=== PATIENT | male | born 1995 | race Hispanic/Latino ===

== ENCOUNTER 2017-12-15 20:59 | Emergency (ER) | payer SELFPAY ==
[2017-12-15 23:51] LABS: Absolute Lymphocytes (CBC) 1.8 K/uL (0.7-4.9); Absolute Monocytes 0.9 K/uL (0.1-1.3); Basophils % 0.4 % (0-1.3); Eosinophils % 0.4 % (0-4.4); Hematocrit 45.1 % (39.6-49.0); Lymphocytes % 18.1 % (15.3-44.8); MCH 29.8 pg (27.0-35.0); MPV 10.1 fL (7.6-11.3); Monocytes % 9.5 % (3.3-12.3); RBC Red Blood Cell Count 5.19 M/uL (4.33-5.43)
[2017-12-16 00:02] LABS: Albumin 3.7 g/dL (3.4-5.0); Bilirubin Total 0.2 mg/dL (0.2-1.0); Potassium 3.8 mmol/L (3.5-5.1)
--- NOTE | 2017-12-16 00:26 | ER ---
Nurse's Notes [facility] Name: Regino Kaba Age: 22 yrs Sex: Male : 1995 Arrival Date: 12/15/2017 Time: 20:59 Bed 7 Private MD: Diagnosis: Dermatitis, unspecified Presentation: 12/15 21:04 Presenting complaint: Patient states: "Last month I had blood work done and they told aj1 me my red blood cells were low. I went back and they told they were back to normal. I just started looking it up on google for things like my symptoms, like leukemia and I'm worried because I have a rash on my back. I'm just really tired I yawn like 20 times a day." Denies pain. Transition of care: patient was not received from another setting of care. Onset of symptoms was October 2017. Risk Assessment: Do you want to hurt yourself or someone else? Patient reports no desire to harm self or others. Initial Sepsis Screen: Does the patient meet any 2 criteria? HR > 90 bpm. No. Patient's initial sepsis screen is negative. Does the patient have a suspected source of infection? No. Patient's initial sepsis screen is negative. Care prior to arrival: None. 21:04 Method Of Arrival: Ambulatory aj1 21:04 Acuity: DYLAN 3 aj1 Triage Assessment: 21:08 General: Appears in no apparent distress. comfortable, Behavior is calm, cooperative. aj1 Pain: Denies pain. Neuro: Level of Consciousness is awake, alert, obeys commands. Cardiovascular: Patient's skin is warm and dry. Respiratory: Airway is patent Respiratory effort is even, unlabored, Respiratory pattern is regular, symmetrical. Historical: - Allergies: 21:08 No Known Allergies; aj1 - Home Meds: 21:08 None [Active]; aj1 - PMHx: 21:08 irregular heart beat; aj1 - PSHx: 21:08 None; aj1 - Immunization history:: Flu vaccine is not up to date. - Social history:: Smoking status: Patient uses tobacco products, denies chronic smoking, but will smoke occasionally. - Ebola Screening: : Patient denies travel to an Ebola-affected area in the 21 days before illness onset. - Family history:: not pertinent. Screenin:13 Abuse screen: Denies threats or abuse. Denies injuries from another. Nutritional ak1 screening: No deficits noted. Tuberculosis screening: No symptoms or risk factors identified. Fall Risk None identified. Assessment: 22:10 General: Appears in no apparent distress. Behavior is calm, anxious. Pain: Denies pain. ak1 Neuro: No deficits noted. Cardiovascular: No deficits noted. Respiratory: No deficits noted. GI: No signs and/or symptoms were reported involving the gastrointestinal system. : No signs and/or symptoms were reported regarding the genitourinary system. EENT: No signs and/or symptoms were reported regarding the EENT system. Derm: Skin is pink, warm \\T\\ dry. 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 12/16 00:08 Reassessment: Patient appears in no apparent distress at this time. No changes from ak1 previously documented assessment. Vital Signs: 12/15 21:08 BP 162 / 87; Pulse 102; Resp 20; Temp 97.3; Pulse Ox 98% on R/A; Weight 104.33 kg (R); aj1 Height 5 ft. 11 in. (180.34 cm) (R); Pain 0/10; 12/16 00:35 BP 124 / 93; Pulse 68; Resp 14; Temp 98; Pulse Ox 99% on R/A; Pain 0/10; ak1 12/15 21:08 Body Mass Index 32.08 (104.33 kg, 180.34 cm) aj1 ED Course: 12/15 20:59 Patient arrived in ED. ds1 21:08 Triage completed. aj1 21:08 Arm band placed on Patient placed in waiting room, Patient notified of wait time. aj1 22:02 Robson Lanza MD is Attending Physician. lizbeth 22:09 Amna Glover, RN is Primary Nurse. ak1 22:13 Patient has correct armband on for positive identification. Bed in low position. Call ak1 light in reach. Side rails up X 1. Pulse ox on. NIBP on. 12/16 00:35 No provider procedures requiring assistance completed. Patient did not have IV access ak1 during this emergency room visit. Administered Medications: No medications were administered Outcome: 00:25 Discharge ordered by . [facility] 00:40 Discharged to home ambulatory, with family. ak1 00:40 Condition: good 00:40 Discharge instructions given to patient, family, Instructed on discharge instructions, follow up and referral plans. Demonstrated understanding of instructions, follow-up care. 00:40 Patient left the ED. ak1 Signatures: Taylor Miranda, RN RN aj1 Robson Lanza MD MD cha Sanford, Demi ds1 Amna Glover, RN RN ak1 Corrections: (The following items were deleted from the chart) 12/15 21:12 21:04 Presenting complaint: Patient states: "Last month I had blood work done and they aj1 told me my red blood cells were low. I went back and they told they were back to normal. I just started looking it up on google and like leukemia and I'm worried because I have a rash on my back. I'm just really tired I yawn like 20 times a day." Denies pain aj1
--- NOTE | 2017-12-16 00:26 | EDPHYS ---
Physician Documentation [facility] Name: Regino Kaba Age: 22 yrs Sex: Male : 1995 Arrival Date: 12/15/2017 Time: 20:59 Bed 7 Private MD: ED Physician Robson Lanza HPI: 12/15 23:15 This 22 yrs old Male presents to ER via Ambulatory with complaints of Rash, lizbeth Fatigue. 23:15 The patient's rash thought to be caused by Dermatitis. The rash is located on the back. lizbeth The rash can be described as patchy. Onset: The symptoms/episode began/occurred 2 day(s) ago. Associated signs and symptoms: Pertinent positives: None. Severity of symptoms: At their worst the symptoms were very mild in the emergency department the symptoms are unchanged. The patient has not experienced similar symptoms in the past. Historical: - Allergies: 21:08 No Known Allergies; aj1 - Home Meds: 21:08 None [Active]; aj1 - PMHx: 21:08 irregular heart beat; aj1 - PSHx: 21:08 None; aj1 - Immunization history:: Flu vaccine is not up to date. - Social history:: Smoking status: Patient uses tobacco products, denies chronic smoking, but will smoke occasionally. - Ebola Screening: : Patient denies travel to an Ebola-affected area in the 21 days before illness onset. - Family history:: not pertinent. ROS: 23:15 Constitutional: Negative for fever, chills, and weight loss, Eyes: Negative for injury, lizbeth pain, redness, and discharge, ENT: Negative for injury, pain, and discharge, Neck: Negative for injury, pain, and swelling, Cardiovascular: Negative for chest pain, palpitations, and edema, Respiratory: Negative for shortness of breath, cough, wheezing, and pleuritic chest pain, Abdomen/GI: Negative for abdominal pain, nausea, vomiting, diarrhea, and constipation, Back: Negative for injury and pain, : Negative for injury, bleeding, discharge, and swelling, MS/Extremity: Negative for injury and deformity, Neuro: Negative for headache, weakness, numbness, tingling, and seizure, Psych: Negative for depression, anxiety, suicide ideation, homicidal ideation, and hallucinations, Allergy/Immunology: Negative for hives, rash, and allergies, Endocrine: Negative for neck swelling, polydipsia, polyuria, polyphagia, and marked weight changes, Hematologic/Lymphatic: Negative for swollen nodes, abnormal bleeding, and unusual bruising. 23:15 Skin: Positive for of the left scapular area. Exam: 23:15 Constitutional: This is a well developed, well nourished patient who is awake, alert, lizbeth and in no acute distress. Head/Face: Normocephalic, atraumatic. Eyes: Pupils equal round and reactive to light, extra-ocular motions intact. Lids and lashes normal. Conjunctiva and sclera are non-icteric and not injected. Cornea within normal limits. Periorbital areas with no swelling, redness, or edema. ENT: Nares patent. No nasal discharge, no septal abnormalities noted. Tympanic membranes are normal and external auditory canals are clear. Oropharynx with no redness, swelling, or masses, exudates, or evidence of obstruction, uvula midline. Mucous membranes moist. Neck: Trachea midline, no thyromegaly or masses palpated, and no cervical lymphadenopathy. Supple, full range of motion without nuchal rigidity, or vertebral point tenderness. No Meningismus. Chest/axilla: Normal chest wall appearance and motion. Nontender with no deformity. No lesions are appreciated. Cardiovascular: Regular rate and rhythm with a normal S1 and S2. No gallops, murmurs, or rubs. Normal PMI, no JVD. No pulse deficits. Respiratory: Lungs have equal breath sounds bilaterally, clear to auscultation and percussion. No rales, rhonchi or wheezes noted. No increased work of breathing, no retractions or nasal flaring. Abdomen/GI: Soft, non-tender, with normal bowel sounds. No distension or tympany. No guarding or rebound. No evidence of tenderness throughout. Male : Normal genitalia with no discharge or lesions. MS/ Extremity: Pulses equal, no cyanosis. Neurovascular intact. Full, normal range of motion. Neuro: Awake and alert, GCS 15, oriented to person, place, time, and situation. Cranial nerves II-XII grossly intact. Motor strength 5/5 in all extremities. Sensory grossly intact. Cerebellar exam normal. Normal gait. Psych: Awake, alert, with orientation to person, place and time. Behavior, mood, and affect are within normal limits. 23:15 Back: pain, is absent, ROM is normal, normal spinal alignment noted, CVA tenderness, is absent, muscle spasm, is not present. Vital Signs: 21:08 BP 162 / 87; Pulse 102; Resp 20; Temp 97.3; Pulse Ox 98% on R/A; Weight 104.33 kg (R); aj1 Height 5 ft. 11 in. (180.34 cm) (R); Pain 0/10; 12/16 00:35 BP 124 / 93; Pulse 68; Resp 14; Temp 98; Pulse Ox 99% on R/A; Pain 0/10; ak1 12/15 21:08 Body Mass Index 32.08 (104.33 kg, 180.34 cm) aj MDM: 12/15 22:02 Patient medically screened. [facility] 23:19 Data reviewed: vital signs, nurses notes, lab test result(s). [facility] 12/15 23:15 Order name: CBC with Diff; Complete Time: 00:25 [facility] 12/15 23:15 Order name: Comprehensive Metabolic Panel; Complete Time: 00: [facility] Administered Medications: No medications were administered Disposition: 12/16/17 00:25 Discharged to Home. Impression: Dermatitis, unspecified. - Condition is Stable. - Discharge Instructions: Alcohol Use Disorder, Rash, Alcohol Abuse and Nutrition, Rash, [id number]. - Medication Reconciliation Form, Thank You Letter, Antibiotic Education, Prescription Opioid Use, Work release form form. - Follow up: Private Physician; When: 2 - 3 days; Reason: Recheck today's complaints, Continuance of care, Re-evaluation by your physician. - Problem is new. - Symptoms have improved. Signatures: Dispatcher [employer] Taylor Ricci RN RN aj1 Robson Lanza MD MD cha Krenek, Amber, RN RN ak1 Corrections: (The following items were deleted from the chart) 12/16 00:40 00:25 12/16/2017 00:25 Discharged to Home. Impression: Dermatitis, unspecified. ak1 Condition is Stable. Discharge Instructions: Alcohol Use Disorder, Rash, Alcohol Abuse and Nutrition, Rash, [id number]. Forms are Medication Reconciliation Form, Thank You Letter, Antibiotic Education, Prescription Opioid Use. Follow up: Private Physician; When: 2 - 3 days; Reason: Recheck today's complaints, Continuance of care, Re-evaluation by your physician. Problem is new. Symptoms have improved. lizbeth
== END 2017-12-16 00:40 | disposition home or self-care (01) ==
LOC: ER 20:59
DX: L30.9 Dermatitis, unspecified (principal); Z72.0 Tobacco use
CPT/HCPCS: 36415; 80053; 85025; 99283

== ENCOUNTER 2017-12-27 18:53 | Emergency (ER) | payer SELFPAY ==
[2017-12-27] MEDS ORDERED: AMOX/K CLAV 875 MG TAB ONE (19:42)
--- NOTE | 2017-12-27 19:51 | EDPHYS ---
Physician Documentation [facility] Name: Regino Kaba Age: 22 yrs Sex: Male : 1995 Arrival Date: 12/27/2017 Time: 18:54 Bed 18 Private MD: ED Physician Nicholas Garcia HPI: 12/27 19:34 This 22 yrs old Male presents to ER via Ambulatory with complaints of Cough. snw 19:34 The patient or guardian reports cough, described as moderate. Onset: The snw symptoms/episode began/occurred suddenly, 4 day(s) ago, and became persistent. Severity of symptoms: At their worst the symptoms were moderate. Associated signs and symptoms: Pertinent positives: pt resists questions about symptoms and states his back gets "hot" sometimes. The patient has experienced similar episodes in the past. The patient has not recently seen a physician. Historical: - Allergies: 19:03 No Known Allergies; lp1 - Home Meds: 19:03 None [Active]; lp1 - PMHx: 19:03 irregular heart beat; lp1 - PSHx: 19:03 None; lp1 - Immunization history:: Adult Immunizations up to date. - Social history:: Smoking status: Patient uses tobacco products, denies chronic smoking, but will smoke occasionally. - Ebola Screening: : No symptoms or risks identified at this time. ROS: 19:32 Constitutional: Negative for fever, chills, and weight loss, Eyes: Negative for injury, snw pain, redness, and discharge, ENT: Negative for injury and discharge, + cough, congestion, sore throat Neck: Negative for injury, pain, and swelling, Cardiovascular: Negative for chest pain, palpitations, and edema, Respiratory: Negative for shortness of breath, cough, wheezing, and pleuritic chest pain, Abdomen/GI: Negative for abdominal pain, nausea, vomiting, diarrhea, and constipation, Back: Negative for injury and pain, : Negative for injury, bleeding, discharge, and swelling, MS/Extremity: Negative for injury and deformity, Skin: Negative for injury, rash, and discoloration, Neuro: Negative for headache, weakness, numbness, tingling, and seizure. 19:32 Psych: Positive for anxiety, pt googles s/s and is convinced he has cancer. Encouraged to find PCP, have regular check-ups, speak with PCP re: anxiety. Exam: 19:31 Constitutional: This is a well developed, well nourished patient who is awake, alert, snw and in no acute distress. Head/Face: Normocephalic, atraumatic. Eyes: Pupils equal round and reactive to light, extra-ocular motions intact. Lids and lashes normal. Conjunctiva and sclera are non-icteric and not injected. Cornea within normal limits. Periorbital areas with no swelling, redness, or edema. 19:31 Neck: Trachea midline, no thyromegaly or masses palpated, and no cervical lymphadenopathy. Supple, full range of motion without nuchal rigidity, or vertebral point tenderness. No Meningismus. Chest/axilla: Normal chest wall appearance and motion. Nontender with no deformity. No lesions are appreciated. Cardiovascular: Regular rate and rhythm with a normal S1 and S2. No gallops, murmurs, or rubs. Normal PMI, no JVD. No pulse deficits. Respiratory: Lungs have equal breath sounds bilaterally, clear to auscultation and percussion. No rales, rhonchi or wheezes noted. No increased work of breathing, no retractions or nasal flaring. Abdomen/GI: Soft, non-tender, with normal bowel sounds. No distension or tympany. No guarding or rebound. No evidence of tenderness throughout. Back: No spinal tenderness. No costovertebral tenderness. Full range of motion. Skin: Warm, dry with normal turgor. Normal color with no rashes, no lesions, and no evidence of cellulitis. MS/ Extremity: Pulses equal, no cyanosis. Neurovascular intact. Full, normal range of motion. Neuro: Awake and alert, GCS 15, oriented to person, place, time, and situation. Cranial nerves II-XII grossly intact. Motor strength 5/5 in all extremities. Sensory grossly intact. Cerebellar exam normal. Normal gait. 19:31 ENT: External ear(s): are unremarkable, Ear canal(s): are normal, TM's: erythema, that is moderate, on the left, Nose: is normal, Mouth: is normal, Posterior pharynx: erythema, that is mild, Voice: is normal. Vital Signs: 19:03 BP 152 / 79; Pulse 76; Resp 18; Temp 98.1(O); Pulse Ox 98% on R/A; Weight 104.33 kg; lp1 Height 5 ft. 9 in. (175.26 cm); Pain 0/10; 19:30 BP 146 / 96; Pulse 90; Resp 18; Pulse Ox 98% on R/A; jb4 20:07 BP 142 / 87; Pulse 89; Resp 18; Pulse Ox 97% on R/A; jb4 19:03 Body Mass Index 33.96 (104.33 kg, 175.26 cm) lp1 MDM: 19:04 Patient medically screened. snw 19:52 Data reviewed: vital signs, nurses notes. Data interpreted: Pulse oximetry: on room air snw is 98 %. Interpretation: normal. Counseling: I had a detailed discussion with the patient and/or guardian regarding: the historical points, exam findings, and any diagnostic results supporting the discharge/admit diagnosis, the presence of at least one elevated blood pressure reading (>120/80) during this emergency department visit, the need for outpatient follow up, to return to the emergency department if symptoms worsen or persist or if there are any questions or concerns that arise at home. Special discussion: I have referred the patient to see his PCP for further evaluation of high blood pressure. Based on the history and exam findings, there is no indication for further emergent testing or inpatient evaluation. I discussed with the patient/guardian the need to see the primary care provider for further evaluation of the symptoms. I discussed with the patient/guardian the need to see the psychiatrist for further evaluation of the symptoms. 12/27 19:05 Order name: Flu; Complete Time: 19:50 snw Administered Medications: 19:36 Drug: Augmentin 875 mg Route: PO; jb 20:06 Follow up: Response: No adverse reaction jb4 Disposition: 12/27/17 19:50 Discharged to Home. Impression: Bronchitis, not specified as acute or chronic, Otitis media, unspecified, left ear. - Condition is Stable. - Discharge Instructions: Acute Bronchitis, Adult, Otitis Media, Adult, Hypertension, Upper Respiratory Infection, Adult, Cough, Adult, Generalized Anxiety Disorder. - Prescriptions for Augmentin 875- 125 mg Oral Tablet - take 1 tablet by ORAL route every 12 hours for 10 days; 20 tablet. Zyrtec 10 mg Oral Tablet - take 1 tablet by ORAL route once daily As needed; 20 tablet. - Medication Reconciliation Form, Thank You Letter, Antibiotic Education, Prescription Opioid Use form. - Follow up: Emergency Department; When: As needed; Reason: Worsening of condition. Follow up: Private Physician; When: 1 week; Reason: Recheck today's complaints, Continuance of care, Re-evaluation by your physician. Addendum: 12/31/2017 16:34 Co-signature as Attending Physician, Nicholas Garcia MD. g s Signatures: Dispatcher [employer] EDSilvina Davis, COLOR LABORATORY TECHNICIAN-C COLOR LABORATORY TECHNICIAN-Csnw Marilu Goodrich, RN RN lp1 Win Carlos RN RN jb4 Nicholas Garcia MD MD Corrections: (The following items were deleted from the chart) 12/27 20:09 19:50 12/27/2017 19:50 Discharged to Home. Impression: Bronchitis, not specified as jb4 acute or chronic; Otitis media, unspecified, left ear. Condition is Stable. Forms are Medication Reconciliation Form, Thank You Letter, Antibiotic Education, Prescription Opioid Use. Follow up: Emergency Department; When: As needed; Reason: Worsening of condition. Follow up: Private Physician; When: 1 week; Reason: Recheck today's complaints, Continuance of care, Re-evaluation by your physician. snw
--- NOTE | 2017-12-27 19:51 | ER ---
Nurse's Notes [facility] Name: Regino Kaba Age: 22 yrs Sex: Male : 1995 Arrival Date: 12/27/2017 Time: 18:54 Bed 18 Private MD: Diagnosis: Bronchitis, not specified as acute or chronic;Otitis media, unspecified, left ear Presentation: 12/27 19:00 Presenting complaint: Patient states: Cough x 1 week, sore throat; Complaint of chills, lp1 possible fever; Taking Nyquil at home with no relief; Productive cough last week that has resolved, dry cough now but states back hurts. Transition of care: patient was not received from another setting of care. Onset of symptoms was December 21, 2017. Risk Assessment: Do you want to hurt yourself or someone else? Patient reports no desire to harm self or others. Initial Sepsis Screen: Does the patient meet any 2 criteria? No. Patient's initial sepsis screen is negative. Does the patient have a suspected source of infection? No. Patient's initial sepsis screen is negative. Care prior to arrival: None. 19:00 Method Of Arrival: Ambulatory lp1 19:00 Acuity: DYLAN 4 lp1 Historical: - Allergies: 19:03 No Known Allergies; lp1 - Home Meds: 19:03 None [Active]; lp1 - PMHx: 19:03 irregular heart beat; lp1 - PSHx: 19:03 None; lp1 - Immunization history:: Adult Immunizations up to date. - Social history:: Smoking status: Patient uses tobacco products, denies chronic smoking, but will smoke occasionally. - Ebola Screening: : No symptoms or risks identified at this time. Screenin:05 Abuse screen: Denies threats or abuse. Nutritional screening: No deficits noted. jb4 Tuberculosis screening: No symptoms or risk factors identified. Fall Risk None identified. Assessment: 19:05 General: Appears in no apparent distress. uncomfortable, Behavior is cooperative, jb4 appropriate for age, anxious. Pain: Denies pain. Neuro: Level of Consciousness is awake, alert, obeys commands, Oriented to person, place, time, situation. Cardiovascular: Patient's skin is warm and dry. Respiratory: Reports cough that is non-productive, persistent Airway is patent Respiratory effort is even, unlabored, Respiratory pattern is regular, symmetrical, Breath sounds are clear bilaterally. GI: No signs and/or symptoms were reported involving the gastrointestinal system. : No signs and/or symptoms were reported regarding the genitourinary system. EENT: Throat is reddened. Derm: Skin is intact, Skin is pink, warm \T\ dry. Musculoskeletal: Circulation, motion, and sensation intact. 20:07 Reassessment: Patient appears in no apparent distress at this time. Patient and/or jb4 family updated on plan of care and expected duration. Pain level reassessed. Patient is alert, oriented x 3, equal unlabored respirations, skin warm/dry/pink. Discussed D/c, F/u with pt, denies questions or concerns. Vital Signs: 19:03 BP 152 / 79; Pulse 76; Resp 18; Temp 98.1(O); Pulse Ox 98% on R/A; Weight 104.33 kg; lp1 Height 5 ft. 9 in. (175.26 cm); Pain 0/10; 19:30 BP 146 / 96; Pulse 90; Resp 18; Pulse Ox 98% on R/A; jb4 20:07 BP 142 / 87; Pulse 89; Resp 18; Pulse Ox 97% on R/A; jb4 19:03 Body Mass Index 33.96 (104.33 kg, 175.26 cm) lp1 ED Course: 18:54 Patient arrived in ED. as 18:56 Win Carlos, RN is Primary Nurse. jb4 18:56 Silvina Casanova FNP-C [facility] snw 18:57 Nicholas Garcia MD is Attending Physician. snw 19:03 Triage completed. lp1 19:03 Arm band placed on left wrist. lp1 19:05 Patient has correct armband on for positive identification. Bed in low position. Call jb4 light in reach. Side rails up X 1. Pulse ox on. NIBP on. 19:05 Flu and/or RSV swab sent to lab. jb4 20:07 No provider procedures requiring assistance completed. Patient did not have IV access jb4 during this emergency room visit. Administered Medications: 19:36 Drug: Augmentin 875 mg Route: PO; jb4 20:06 Follow up: Response: No adverse reaction jb4 Outcome: 19:50 Discharge ordered by . snw 20:07 Discharged to home ambulatory. jb4 20:07 Condition: stable 20:07 Discharge instructions given to patient, family, Instructed on discharge instructions, follow up and referral plans. medication usage, Demonstrated understanding of instructions, follow-up care, medications, Prescriptions given X 2. 20:09 Patient left the ED. jb4 Signatures: Silvina Casanova, TALKING BOOKS LIBRARY CLERK-C TALKING BOOKS LIBRARY CLERK-Csnw Christine Nair Laura, RN RN lp1 Win Carlos RN RN jb4 Corrections: (The following items were deleted from the chart) 19:37 19:05 General: Appears in no apparent distress. uncomfortable, Behavior is calm, jb4 cooperative, appropriate for age, jb4 20:09 20:07 Reassessment: Patient appears in no apparent distress at this time. Patient jb4 and/or family updated on plan of care and expected duration. Pain level reassessed. Patient is alert, oriented x 3, equal unlabored respirations, skin warm/dry/pink. jb4
== END 2017-12-27 20:09 | disposition home or self-care (01) ==
LOC: ER 18:53
DX: J40 Bronchitis, not specified as acute or chronic (principal); H66.92 Otitis media, unspecified, left ear
CPT/HCPCS: 87804; 99284

== ENCOUNTER 2018-01-06 10:50 | Emergency (ER) | payer SELFPAY ==
[2018-01-06] MEDS ORDERED: TETANUS & DIPHTHERIA TOX,ADULT 0.5 ML VIAL ONE (11:28)
[2018-01-06] MEDS ORDERED: LIDOCAINE 1% MPF 30 ML VIAL ONE (11:28)
--- NOTE | 2018-01-06 11:48 | RAD REPORT ---
EXAM DESCRIPTION: CT - [id number] - 01/06/2018 11:35 am CLINICAL HISTORY: Trauma, head and neck injury. head injury COMPARISON: No comparisons TECHNIQUE: Axial 5 mm thick images of the head were obtained. Axial 2 mm thick images of the cervical spine were obtained with sagittal and coronal reconstruction images generated and reviewed. All CT scans are performed using dose optimization technique as appropriate and may include automated exposure control or mA/KV adjustment according to patient size. FINDINGS: CT HEAD WITHOUT CONTRAST: No acute hemorrhage, hydrocephalus or extra-axial collection is identified.No areas of brain edema or midline shift. The paranasal sinuses and mastoids are clear.The calvarium is intact. Small posterior scalp hematoma present. CT CERVICAL SPINE WITHOUT CONTRAST: No fracture or subluxation.No prevertebral soft tissues swelling is identified. IMPRESSION: No acute intracranial or cervical spine findings.
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
== END 2018-01-06 12:53 | disposition home or self-care (01) ==
LOC: ER 10:50
PROC: 0JQ00ZZ Repair Scalp Subcutaneous Tissue and Fascia, Open Approach (ICD-10-PCS; principal; 2018-01-06)
DX: S01.01XA Laceration without foreign body of scalp, initial encounter (principal); S09.90XA Unspecified injury of head, initial encounter; Z23 Encounter for immunization; W22.8XXA Striking against or struck by other objects, initial encounter
CPT/HCPCS: 70450; 72125; 90714; 99284

== ENCOUNTER 2018-03-06 18:41 | Emergency (ER) | payer SELFPAY ==
--- NOTE | 2018-03-06 20:11 | RAD REPORT ---
EXAM DESCRIPTION: RAD - Nasal Bones - 03/06/2018 8:04 pm CLINICAL HISTORY: Nasal pain status post fall FINDINGS: Linear lucency within the nasal bone is equivocal for a nondisplaced fracture.
--- NOTE | 2018-03-06 20:18 | ER ---
Nurse's Notes [facility] Name: Regino Kaba Age: 22 yrs Sex: Male : 1995 Arrival Date: 03/06/2018 Time: 18:44 Bed 24 Private MD: Diagnosis: Fracture of nasal bones Presentation: 03/06 18:51 Presenting complaint: Patient states: at work Tuesday, i fell and hurt my nose; denies hj LOC:. Transition of care: patient was not received from another setting of care. Onset of symptoms was March 06, 2018. Risk Assessment: Do you want to hurt yourself or someone else? Patient reports no desire to harm self or others. Initial Sepsis Screen: Does the patient meet any 2 criteria? No. Patient's initial sepsis screen is negative. Does the patient have a suspected source of infection? No. Patient's initial sepsis screen is negative. Care prior to arrival: None. 18:51 Method Of Arrival: Ambulatory 18:51 Acuity: DYLAN 4 hj Triage Assessment: 18:53 General: Appears in no apparent distress. uncomfortable, Behavior is calm, cooperative, hj appropriate for age. Pain: Complains of pain in nose Pain currently is 7 out of 10 on a pain scale. Historical: - Allergies: 18:53 No Known Allergies; hj - Home Meds: 18:53 None [Active]; hj - PMHx: 18:53 irregular heart beat; hj - PSHx: 18:53 None; hj - Immunization history:: Adult Immunizations up to date. - Social history:: Smoking status: Patient/guardian denies using tobacco, Patient/guardian denies using alcohol. - Ebola Screening: : Patient negative for fever greater than or equal to 101.5 degrees Fahrenheit, and additional compatible Ebola Virus Disease symptoms Patient denies exposure to infectious person Patient denies travel to an Ebola-affected area in the 21 days before illness onset. Screenin:53 Abuse screen: Denies threats or abuse. Denies injuries from another. Nutritional hj screening: No deficits noted. Tuberculosis screening: No symptoms or risk factors identified. Fall Risk None identified. Assessment: 19:31 General: Appears in no apparent distress. comfortable, Behavior is calm, cooperative. mg2 20:11 Pain: Complains of pain in nose Pain does not radiate. Pain currently is 1 out of 10 on mg2 a pain scale. Quality of pain is described as aching, Pain began 2-3 days ago. Is intermittent, Aggravated by touch. Neuro: Level of Consciousness is awake, alert, obeys commands, Oriented to person, place, time, situation. Cardiovascular: Capillary refill < 3 seconds Patient's skin is warm and dry. Respiratory: Airway is patent Respiratory effort is even, unlabored, Respiratory pattern is regular, symmetrical. GI: No signs and/or symptoms were reported involving the gastrointestinal system. : No signs and/or symptoms were reported regarding the genitourinary system. EENT: Nares are clear. Derm: Skin is intact, is healthy with good turgor, Skin is pink, warm \T\ dry. normal. Derm: Wound noted left eyebrow area Wound is close and healing, small abrasion noted. Musculoskeletal: Circulation, motion, and sensation intact. Capillary refill < 3 seconds. 20:30 Reassessment: Patient appears in no apparent distress at this time. Patient and/or mg2 family updated on plan of care and expected duration. Pain level reassessed. Patient is alert, oriented x 3, equal unlabored respirations, skin warm/dry/pink. Vital Signs: 18:53 BP 133 / 75; Pulse 94; Resp 16 S; Temp 98.4(TE); Pulse Ox 99% on R/A; Weight 102.97 kg; Height 5 ft. 11 in. (180.34 cm); Pain 7/10; 20:17 BP 128 / 82; Pulse 74; Resp 18; Pulse Ox 97% on R/A; Pain 0/10; mg2 20:29 BP 126 / 78; Pulse 78; Resp 18; Pulse Ox 100% on R/A; Pain 0/10; mg2 18:53 Body Mass Index 31.66 (102.97 kg, 180.34 cm) ED Course: 18:44 Patient arrived in ED. am2 18:52 Triage completed. 18:53 Arm band placed on right wrist. 18:53 Patient has correct armband on for positive identification. Bed in low position. Call light in reach. Side rails up X 1. 19:15 Gilson Elizabeth RN is Primary Nurse. mg2 19:24 Mamadou Rubio PA is PHCP. jr8 19:24 Karson Montiel MD is Attending Physician. jr8 19:54 Patient moved to radiology via wheelchair. az 20:04 X-ray completed. Patient tolerated procedure well. Patient moved back from radiology. az 20:05 XRAY Nasal Bones In Process Unspecified. EDMS 20:09 No provider procedures requiring assistance completed. Patient did not have IV access mg2 during this emergency room visit. 20:17 Shelley Chen MD is Referral Physician. jr8 Administered Medications: No medications were administered Outcome: 20:17 Discharge ordered by . jr8 20:30 Discharged to home ambulatory, with family. mg2 20:30 Condition: good 20:30 Discharge instructions given to patient, family, Instructed on discharge instructions, follow up and referral plans. Demonstrated understanding of instructions, follow-up care. 20:31 Patient left the ED. mg2 Signatures: Dispatcher [employer] EDMS Mamadou Rubio PA PA jr8 Niraj Lezama RN RN Marysol Don am2 Gilson Elizabeth RN RN mg2 Анна Linda az
--- NOTE | 2018-03-06 20:18 | EDPHYS ---
Physician Documentation [facility] Name: Regino Kaba Age: 22 yrs Sex: Male : 1995 Arrival Date: 03/06/2018 Time: 18:44 Bed 24 Private MD: ED Physician Karson Montiel HPI: 03/06 20:14 This 22 yrs old Male presents to ER via Ambulatory with complaints of Nose jr8 Problem - injury. 20:14 The patient presents with nasal trauma. Onset: The symptoms/episode began/occurred jr8 acutely, 2 day(s) ago. Modifying factors: The symptoms are alleviated by nothing. the symptoms are aggravated by nothing. Associated signs and symptoms: The patient has no apparent associated signs or symptoms, Loss of consciousness: the patient experienced no loss of consciousness. Severity of symptoms: At their worst the symptoms were mild in the emergency department the symptoms are unchanged. The patient has not experienced similar symptoms in the past. The patient has not recently seen a physician. Fell while at work hitting nose. Swelling and pain since incident. No LOC . Historical: - Allergies: 18:53 No Known Allergies; hj - Home Meds: 18:53 None [Active]; hj - PMHx: 18:53 irregular heart beat; hj - PSHx: 18:53 None; hj - Immunization history:: Adult Immunizations up to date. - Social history:: Smoking status: Patient/guardian denies using tobacco, Patient/guardian denies using alcohol. - Ebola Screening: : Patient negative for fever greater than or equal to 101.5 degrees Fahrenheit, and additional compatible Ebola Virus Disease symptoms Patient denies exposure to infectious person Patient denies travel to an Ebola-affected area in the 21 days before illness onset. ROS: 20:14 Eyes: Negative for injury, pain, redness, and discharge, Neck: Negative for injury, jr8 pain, and swelling, Respiratory: Negative for shortness of breath, cough, wheezing, and pleuritic chest pain, Abdomen/GI: Negative for abdominal pain, nausea, vomiting, diarrhea, and constipation, Back: Negative for injury and pain, MS/Extremity: Negative for injury and deformity, Skin: Negative for injury, rash, and discoloration, Neuro: Negative for headache, weakness, numbness, tingling, and seizure. 20:14 ENT: Positive for injury or acute deformity, nose. Exam: 20:14 Eyes: Pupils equal round and reactive to light, extra-ocular motions intact. Lids and jr8 lashes normal. Conjunctiva and sclera are non-icteric and not injected. Cornea within normal limits. Periorbital areas with no swelling, redness, or edema. ENT: Nares patent. No nasal discharge, no septal abnormalities noted. Tympanic membranes are normal and external auditory canals are clear. Oropharynx with no redness, swelling, or masses, exudates, or evidence of obstruction, uvula midline. Mucous membranes moist. Neck: Trachea midline, no thyromegaly or masses palpated, and no cervical lymphadenopathy. Supple, full range of motion without nuchal rigidity, or vertebral point tenderness. No Meningismus. Cardiovascular: Regular rate and rhythm with a normal S1 and S2. No gallops, murmurs, or rubs. Normal PMI, no JVD. No pulse deficits. Respiratory: Lungs have equal breath sounds bilaterally, clear to auscultation and percussion. No rales, rhonchi or wheezes noted. No increased work of breathing, no retractions or nasal flaring. Abdomen/GI: Soft, non-tender, with normal bowel sounds. No distension or tympany. No guarding or rebound. No evidence of tenderness throughout. Back: No spinal tenderness. No costovertebral tenderness. Full range of motion. Skin: Warm, dry with normal turgor. Normal color with no rashes, no lesions, and no evidence of cellulitis. MS/ Extremity: Pulses equal, no cyanosis. Neurovascular intact. Full, normal range of motion. Neuro: Awake and alert, GCS 15, oriented to person, place, time, and situation. Cranial nerves II-XII grossly intact. Motor strength 5/5 in all extremities. Sensory grossly intact. Cerebellar exam normal. Normal gait. 20:14 Head/face: Noted is mild swelling to nasal bridge. Mild deformity suspected visualization . Vital Signs: 18:53 BP 133 / 75; Pulse 94; Resp 16 S; Temp 98.4(TE); Pulse Ox 99% on R/A; Weight 102.97 kg; hj Height 5 ft. 11 in. (180.34 cm); Pain 7/10; 20:17 BP 128 / 82; Pulse 74; Resp 18; Pulse Ox 97% on R/A; Pain 0/10; mg2 20:29 BP 126 / 78; Pulse 78; Resp 18; Pulse Ox 100% on R/A; Pain 0/10; mg2 18:53 Body Mass Index 31.66 (102.97 kg, 180.34 cm) [facility]: 19:25 Patient medically screened. jr8 20:14 Data reviewed: vital signs, nurses notes, radiologic studies, plain films, and as a jr8 result, I will discharge patient. Data interpreted: Pulse oximetry: on room air is 99 %. Interpretation: normal. Counseling: I had a detailed discussion with the patient and/or guardian regarding: the historical points, exam findings, and any diagnostic results supporting the discharge/admit diagnosis, radiology results, the need for outpatient follow up, an ENT specialist, to return to the emergency department if symptoms worsen or persist or if there are any questions or concerns that arise at home. 03/06 19:41 Order name: XRAY Nasal Bones; Complete Time: 20:14 jr8 Administered Medications: No medications were administered Disposition: 03/06/18 20:17 Discharged to Home. Impression: Fracture of nasal bones. - Condition is Stable. - Discharge Instructions: Nasal Fracture. - Medication Reconciliation Form, Thank You Letter, Antibiotic Education, Prescription Opioid Use form. - Follow up: Shelley Chen MD; When: 2 - 3 days; Reason: Recheck today's complaints, Continuance of care, Re-evaluation by your physician. - Problem is new. - Symptoms have improved. Addendum: 03/07/2018 22:30 Co-signature as Attending Physician, Karson Montiel MD I agree with the assessment and t w4 plan of care. Signatures: Dispatcher [employer] EDMS Mamadou Rubio PA PA jr8 Niarj Lezama RN RN hj Wadley, Terrence, MD MD tw4 Gilson Elizabeth RN RN mg2 Corrections: (The following items were deleted from the chart) 03/06 20:31 20:17 03/06/2018 20:17 Discharged to Home. Impression: Fracture of nasal bones. mg2 Condition is Stable. Forms are Medication Reconciliation Form, Thank You Letter, Antibiotic Education, Prescription Opioid Use. Follow up: Shelley Chen; When: 2 - 3 days; Reason: Recheck today's complaints, Continuance of care, Re-evaluation by your physician. Problem is new. Symptoms have improved. jr8
== END 2018-03-06 20:31 | disposition home or self-care (01) ==
LOC: ER 18:41
DX: S02.2XXA Fracture of nasal bones, initial encounter for closed fracture (principal); W18.30XA Fall on same level, unspecified, initial encounter; Y93.89 Activity, other specified; Y92.9 Unspecified place or not applicable; Y99.0 Civilian activity done for income or pay
CPT/HCPCS: 70160; 99283

== ENCOUNTER 2018-06-08 19:18 | Emergency (ER) | payer SELFPAY ==
[2018-06-08] MEDS ORDERED: MAGNE/ALUM HYDROXD 30 ML UCUP ONE (19:59)
[2018-06-08] MEDS ORDERED: LIDOCAINE VISCOUS 2% SOLN 15 ML UDC ONE (20:00)
[2018-06-08 20:14] LABS: Absolute Lymphocytes (CBC) 1.6 K/uL (0.7-4.9); Absolute Monocytes 0.6 K/uL (0.1-1.3); Absolute Neutrophil 3.8 K/uL (1.8-8.0); Basophils % 0.2 % (0-1.3); Eosinophils % 0.5 % (0-4.4); Hematocrit 46.1 % (39.6-49.0); Lymphocytes % 25.7 % (15.3-44.8); MPV 10.1 fL (7.6-11.3); Monocytes % 10.5 % (3.3-12.3); RBC Red Blood Cell Count 5.34 M/uL (4.33-5.43)
[2018-06-08 20:34] LABS: Albumin 4.2 g/dL (3.4-5.0); Bilirubin Total 0.7 mg/dL (0.2-1.0); Protein, Total 7.8 g/dL (6.4-8.2)
--- NOTE | 2018-06-08 20:42 | EDPHYS ---
Physician Documentation [facility] Name: Regino Kaba Age: 22 yrs Sex: Male : 1995 Arrival Date: 06/08/2018 Time: 19:19 Bed 27 Private MD: ED Physician Bryant Arboleda HPI: 06/08 19:35 This 22 yrs old Male presents to ER via Unassigned with complaints of LUQ and ps1 epigastric pain. 19:35 patient states that it has been intermittent and not associated with trauma. He states ps1 that his symptoms got worse over the last week and associated with acidic gastric reflux. He is currently pain free. States that he drinks alcohol intermittently and last drink was 3 days ago and he had 6 beers. His pain preceded the drinking. Takes no medications. . Historical: - Allergies: 19:30 No Known Allergies; ca1 - Home Meds: 19:30 None [Active]; ca1 - PMHx: 19:30 irregular heart beat; ca1 - PSHx: 19:30 None; ca1 - Immunization history:: Flu vaccine is up to date. - Social history:: Smoking status: Patient/guardian denies using tobacco, but has a distant history of tobacco abuse. - Ebola Screening: : No symptoms or risks identified at this time. ROS: 19:35 Constitutional: Negative for fever, chills, and weight loss, Eyes: Negative for injury, ps1 pain, redness, and discharge, Cardiovascular: Negative for chest pain, palpitations, and edema, Respiratory: Negative for shortness of breath, cough, wheezing, and pleuritic chest pain, MS/Extremity: Negative for injury and deformity, Skin: Negative for injury, rash, and discoloration, Neuro: Negative for headache, weakness, numbness, tingling, and seizure. 19:35 Abdomen/GI: Positive for abdominal pain, nausea, reflux. Exam: 19:35 Constitutional: This is a well developed, well nourished patient who is awake, alert, ps1 and in no acute distress. Head/Face: Normocephalic, atraumatic. Eyes: Pupils equal round and reactive to light, extra-ocular motions intact. Lids and lashes normal. Conjunctiva and sclera are non-icteric and not injected. Chest/axilla: Normal chest wall appearance and motion. Nontender with no deformity. No lesions are appreciated. Cardiovascular: Regular rate and rhythm. No gallops, murmurs, or rubs. Normal PMI, no JVD. No pulse deficits. Respiratory: Lungs have equal breath sounds bilaterally, clear to auscultation and percussion. No rales, rhonchi or wheezes noted. No increased work of breathing, no retractions or nasal flaring. Abdomen/GI: Soft, non-tender, with normal bowel sounds. No distension or tympany. No guarding or rebound. No evidence of tenderness throughout. Skin: Warm, dry with normal turgor. Normal color with no rashes, no lesions, and no evidence of cellulitis. MS/ Extremity: Pulses equal, no cyanosis. Neurovascular intact. Full, normal range of motion. Neuro: Awake and alert, GCS 15, oriented to person, place, time, and situation. Cranial nerves II-XII grossly intact. Sensory grossly intact. Vital Signs: 19:30 BP 142 / 97; Pulse 94; Resp 18 S; Temp 98.1; Pulse Ox 99% on R/A; Weight 108.86 kg; ca1 Height 5 ft. 11 in. (180.34 cm); Pain 3/10; 20:40 BP 133 / 72; Pulse 74; Resp 18; Pulse Ox 100% on R/A; mg2 19:30 Body Mass Index 33.47 (108.86 kg, 180.34 cm) ca1 MDM: 19:35 Data reviewed: vital signs, nurses notes. ps1 19:41 Patient medically screened. ps1 20:39 ED course: patient remains painless. Labs reviewed and not consistent with acute ps1 process. Will start omeprazole, carafate, and bentyl. Have patient follow up with PCP for reevaluation and consideration of referral for EGD. Pt stable for discharge. . 06/08 19:41 Order name: CBC with Diff; Complete Time: 20:23 ps1 06/08 19:41 Order name: CMP; Complete Time: 20:38 ps1 06/08 19:41 Order name: Lipase; Complete Time: 20:38 ps1 Administered Medications: 19:54 Drug: GI Cocktail without - (Maalox Suspension 30 ml, Lidocaine Liquid 2 % 15 ca1 ml) Route: PO; 20:35 Follow up: Response: No adverse reaction; Marked relief of symptoms mg2 Disposition: 06/08/18 20:41 Discharged to Home. Impression: Peptic ulcer, site unspecified. - Condition is Stable. - Discharge Instructions: Food Choices for Gastroesophageal Reflux Disease, Adult, Peptic Ulcer, Food Choices for Peptic Ulcer Disease. - Prescriptions for omeprazole 40 mg Oral capsule,delayed release(DR/EC) - take 1 capsule by ORAL route once daily before a meal; 30 capsule. Bentyl 10 mg Oral Capsule - take 1 capsule by ORAL route every 6 hours As needed; 40 capsule. Carafate 1 gram Oral Tablet - take 1 tablet by ORAL route 4 times per day take on an empty stomach, beginning on waking and last dose at bedtime; 100 tablet. - Medication Reconciliation Form, Thank You Letter, Antibiotic Education, Prescription Opioid Use, Work release form form. - Follow up: Private Physician; When: 7 - 10 days; Reason: Further diagnostic work-up, Recheck today's complaints, Re-evaluation by your physician. - Problem is new. - Symptoms are unchanged. Signatures: Dispatcher [employer] EDMS Bryant Arboleda MD MD ps1 Gilson Elizabeth RN RN mg2 Aidan, CED Cohn RN ca1 Corrections: (The following items were deleted from the chart) 20:54 20:41 06/08/2018 20:41 Discharged to Home. Impression: Peptic ulcer, site unspecified. mg2 Condition is Stable. Forms are Medication Reconciliation Form, Thank You Letter, Antibiotic Education, Prescription Opioid Use. Follow up: Private Physician; When: 7 - 10 days; Reason: Further diagnostic work-up, Recheck today's complaints, Re-evaluation by your physician. Problem is new. Symptoms are unchanged. ps1
--- NOTE | 2018-06-08 20:42 | ER ---
Nurse's Notes [facility] Name: Regino Kaba Age: 22 yrs Sex: Male : 1995 Arrival Date: 06/08/2018 Time: 19:19 Bed 27 Private MD: Diagnosis: Peptic ulcer, site unspecified Presentation: 06/08 19:30 Presenting complaint: Patient states: "I have been having pain at the left upper belly ca1 just below my rib cage for a couple of days now but is worst today. Transition of care: patient was not received from another setting of care. Onset of symptoms was June 08, 2018. Risk Assessment: Do you want to hurt yourself or someone else? Patient reports no desire to harm self or others. Initial Sepsis Screen: Does the patient meet any 2 criteria? No. Patient's initial sepsis screen is negative. Does the patient have a suspected source of infection? No. Patient's initial sepsis screen is negative. Care prior to arrival: None. 19:30 Method Of Arrival: Ambulatory ca1 19:30 Acuity: DYLAN 3 ca1 Triage Assessment: 19:30 General: Appears in no apparent distress. comfortable, Behavior is calm, cooperative, ca1 appropriate for age. Pain: Complains of pain in left upper quadrant Pain does not radiate. Pain at worst was 3 out of 10 on a pain scale. Quality of pain is described as pressure, Pain began gradually, over a week Is intermittent. Historical: - Allergies: 19:30 No Known Allergies; ca1 - Home Meds: 19:30 None [Active]; ca1 - PMHx: 19:30 irregular heart beat; ca1 - PSHx: 19:30 None; ca1 - Immunization history:: Flu vaccine is up to date. - Social history:: Smoking status: Patient/guardian denies using tobacco, but has a distant history of tobacco abuse. - Ebola Screening: : No symptoms or risks identified at this time. Screenin:35 Abuse screen: Denies threats or abuse. Denies injuries from another. Nutritional ca1 screening: No deficits noted. Tuberculosis screening: No symptoms or risk factors identified. Fall Risk None identified. Assessment: 19:35 General: Appears in no apparent distress. comfortable, Behavior is calm, cooperative, ca1 appropriate for age. Pain: Complains of pain in left upper quadrant Pain does not radiate. Pain at worst was 3 out of 10 on a pain scale. Quality of pain is described as pressure, Pain began gradually, over a week ago but is worst today Is intermittent. Neuro: Level of Consciousness is awake, alert, obeys commands, Oriented to person, place, time, situation. Cardiovascular: Heart tones S1 S2 present Capillary refill < 3 seconds Patient's skin is warm and dry. Respiratory: Airway is patent Respiratory effort is even, unlabored, Respiratory pattern is regular, symmetrical, Breath sounds are clear bilaterally. GI: Abdomen is flat, non-distended, Bowel sounds present X 4 quads. Abd is soft and non tender X 4 quads. : No deficits noted. No signs and/or symptoms were reported regarding the genitourinary system. EENT: No deficits noted. No signs and/or symptoms were reported regarding the EENT system. Derm: Skin is intact, is healthy with good turgor, Skin is pink, warm \\T\\ dry. Musculoskeletal: Circulation, motion, and sensation intact. Capillary refill < 3 seconds. 20:53 Reassessment: Patient denies pain at this time. Patient states feeling better. Patient mg2 states symptoms have improved. Vital Signs: 19:30 BP 142 / 97; Pulse 94; Resp 18 S; Temp 98.1; Pulse Ox 99% on R/A; Weight 108.86 kg; ca1 Height 5 ft. 11 in. (180.34 cm); Pain 3/10; 20:40 BP 133 / 72; Pulse 74; Resp 18; Pulse Ox 100% on R/A; mg2 19:30 Body Mass Index 33.47 (108.86 kg, 180.34 cm) ca1 ED Course: 19:19 Patient arrived in ED. am2 19:29 Bryant Arboleda MD is Attending Physician. ps1 19:30 Suki Bermudez, CED is Primary Nurse. ca1 19:30 Arm band placed on right wrist. ca1 19:35 Patient has correct armband on for positive identification. Placed in gown. Bed in low ca1 position. Call light in reach. Side rails up X 1. Pulse ox on. NIBP on. Warm blanket given. 19:41 Triage completed. ca1 19:47 No provider procedures requiring assistance completed. ca1 19:50 Initial lab(s) drawn, by me, sent to lab. via 21-gauge needle and 10ml syringe. jp3 19:55 Lipase Sent. jp3 19:55 CMP Sent. jp3 19:55 CBC with Diff Sent. jp3 20:53 Patient did not have IV access during this emergency room visit. mg2 Administered Medications: 19:54 Drug: GI Cocktail without - (Maalox Suspension 30 ml, Lidocaine Liquid 2 % 15 ca1 ml) Route: PO; 20:35 Follow up: Response: No adverse reaction; Marked relief of symptoms mg2 Outcome: 20:41 Discharge ordered by MD. ps1 20:53 Discharged to home ambulatory, with family. mg2 20:53 Condition: stable 20:53 Discharge instructions given to patient, family, Instructed on discharge instructions, follow up and referral plans. medication usage, Demonstrated understanding of instructions, follow-up care, medications, Prescriptions given X 3. 20:54 Patient left the ED. mg2 Signatures: Marysol Don am2 Bryant Arboleda MD MD ps1 Gilson Elizabeth RN RN mg2 Eduard Kilpatrick jp3 Suki Bermudez RN RN ca1 Corrections: (The following items were deleted from the chart) 19:43 19:30 Pain: Denies pain. ca1 ca1 19:48 19:47 Initial lab(s) drawn, by ED staff, sent to lab. ca1 ca1
== END 2018-06-08 20:54 | disposition home or self-care (01) ==
LOC: ER 19:18
DX: K27.9 Peptic ulcer, site unspecified, unspecified as acute or chronic, without hemorrhage or perforation (principal)
CPT/HCPCS: 36415; 80053; 83690; 85025; 99284

== ENCOUNTER 2019-05-24 00:44 | Emergency (ER) | payer SELFPAY ==
[2019-05-24] MEDS ORDERED: LIDOCAINE 2% MPF 5 ML VIAL ONE (01:09)
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
--- NOTE | 2019-05-24 01:41 | EDPHYS ---
Physician Documentation [facility] Name: Regino Kaba Age: 23 yrs Sex: Male : 1995 Arrival Date: 05/24/2019 Time: 00:45 Bed 19 Private MD: ED Physician Karson Montiel HPI: 05/23 01:05 This 23 yrs old Male presents to ER via Ambulatory with complaints of tw4 Laceration To Lip. 01:05 The patient or guardian reports a laceration, 9 cm(s). The complaints affect the lower tw4 vermilion border. Context of injury: The problem was sustained at home. Onset: The symptoms/episode began/occurred today. Associated signs and symptoms: Loss of consciousness: This patient did not experience any loss of consciousness. Severity of symptoms: At their worst the symptoms were moderate, in the emergency department the symptoms are unchanged. The patient has not experienced similar symptoms in the past. Historical: - Allergies: 00:58 No Known Allergies; ea - Home Meds: 00:58 None [Active]; ea - PMHx: 00:58 irregular heart beat; ea - PSHx: 00:58 None; ea - Immunization history:: Adult Immunizations up to date. - Social history:: Smoking status: Patient reports the use of cigarette tobacco products, denies chronic smoking, but will smoke occasionally. ROS: 01:05 Constitutional: Negative for fever, chills, and weight loss, Eyes: Negative for injury, tw4 pain, redness, and discharge, Cardiovascular: Negative for chest pain, palpitations, and edema, Respiratory: Negative for shortness of breath, cough, wheezing, and pleuritic chest pain, Abdomen/GI: Negative for abdominal pain, nausea, vomiting, diarrhea, and constipation, Back: Negative for injury and pain, MS/Extremity: Negative for injury and deformity, Skin: Negative for injury, rash, and discoloration, Neuro: Negative for headache, weakness, numbness, tingling, and seizure. Exam: 01:08 Constitutional: This is a well developed, well nourished patient who is awake, alert, tw4 and in no acute distress. Chest/axilla: Normal chest wall appearance and motion. Nontender with no deformity. No lesions are appreciated. Cardiovascular: Regular rate and rhythm with a normal S1 and S2. No gallops, murmurs, or rubs. Normal PMI, no JVD. No pulse deficits. Respiratory: Lungs have equal breath sounds bilaterally, clear to auscultation and percussion. No rales, rhonchi or wheezes noted. No increased work of breathing, no retractions or nasal flaring. Abdomen/GI: Soft, non-tender, with normal bowel sounds. No distension or tympany. No guarding or rebound. No evidence of tenderness throughout. 01:08 Head/face: Noted is contusion, of the lower vermilion border, a laceration(s), that is superficial, that is jagged, 9 cm(s). Vital Signs: 00:51 BP 138 / 87; Pulse 89; Resp 18; Temp 99.4; Pulse Ox 99% on R/A; Weight 98.88 kg; Height ea 5 ft. 11 in. (180.34 cm); 01:00 BP 138 / 87; Pulse 89; Resp 18; Temp 99.4; Pulse Ox 99% on R/A; Pain 7/10; jv1 01:45 BP 135 / 80; Pulse 88; Resp 18; Temp 98; Pulse Ox 100% ; Pain 3/10; jv1 00:51 Body Mass Index 30.40 (98.88 kg, 180.34 cm) ea Laceration: 01:39 Wound Repair of 3cm ( 1.2in ) subcutaneous laceration to chin. Distal jmm neuro/vascular/tendon intact. Anesthesia: Local anesthetic administered with 3 mls of 1% lidocaine. Wound prep: Simple cleansing with betadine by me. Skin closed with 6 5-0 Prolene using simple sutures and sterile technique. Patient tolerated well. MDM: 00:56 Patient medically screened. tw4 01:39 Data reviewed: vital signs, nurses notes. Counseling: I had a detailed discussion with [facility] the patient and/or guardian regarding: the historical points, exam findings, and any diagnostic results supporting the discharge/admit diagnosis, the need for outpatient follow up, to return to the emergency department if symptoms worsen or persist or if there are any questions or concerns that arise at home. Administered Medications: 01:15 Drug: Lidocaine (2 %) 5 mg Route: Infiltration; jb4 02:00 Follow up: Response: No adverse reaction; Pain is decreased jv1 Disposition: 03:02 Co-signature as Attending Physician, Karson Montiel MD I agree with the assessment and tw4 plan of care. Disposition: 05/24/19 01:41 Discharged to Home. Impression: Facial Laceration. - Condition is Stable. - Discharge Instructions: Facial Laceration. - Medication Reconciliation Form, Thank You Letter, Antibiotic Education, Prescription Opioid Use form. - Follow up: Private Physician; When: 5 - 6 days; Reason: Recheck today's complaints, Continuance of care, Staple/Suture removal, Re-evaluation by your physician. Signatures: Juni Pat PA PA jmm Bryson, James RN RN jb4 April Hudson RN Karson Whitley ea, MD MD tw4 Pauline Sanabria RN jv1 Corrections: (The following items were deleted from the chart) 02:01 01:41 05/24/2019 01:41 Discharged to Home. Impression: Facial Laceration. Condition is jb4 Stable. Forms are Medication Reconciliation Form, Thank You Letter, Antibiotic Education, Prescription Opioid Use. Follow up: Private Physician; When: 5 - 6 days; Reason: Recheck today's complaints, Continuance of care, Staple/Suture removal, Re-evaluation by your physician. jim
[2019-05-24 02:07] VITALS: BP 138/87; TEMP 99.4; O2SAT 99
== END 2019-05-24 02:01 | disposition home or self-care (01) ==
LOC: ER 00:44
PROC: 0JQ10ZZ Repair Face Subcutaneous Tissue and Fascia, Open Approach (ICD-10-PCS; principal; 2019-05-24)
DX: S01.81XA Laceration without foreign body of other part of head, initial encounter (principal); V86.55XA Driver of 3- or 4- wheeled all-terrain vehicle (ATV) injured in nontraffic accident, initial encounter
CPT/HCPCS: 99284

== ENCOUNTER 2022-01-25 04:49 | Emergency (ER) | payer SELFPAY ==
--- OUTSIDE RECORDS SUMMARY | 2022-01-25 04:52 | XMS REPORT | Continuity of Care Document ---
:1995 Author Organization [facility] t Address [address] [place] [address] Care Team Providers Name Role Phone Pcp, Patient Does Not Have A Primary Care Physician [id number] PEARL KEITH Attending Clinician Unavailable Pearl Keith MD Attending Clinician Doctor Unassigned, [place] Attending Clinician Unavailable Macho Carlos Attending Clinician MACHO JHAVERI Attending Clinician Unavailable Problems Condition Condition Condition Status Onset Resolution Last Treating Co mments Source Name Details Category Date Date Treatment Clinician Date No known No known Disease Unive rs active active ity of problems problems [facility] Allergies, Adverse Reactions, Alerts Allergy Allergy Status Severity Reaction(s) Onset Inactive Treating Comm ents Source Name Type Date Date Clinician NO KNOWN Drug Active Univers ALLERGIE Class ity of S [facility] Social History Social Habit Start Date Stop Date Quantity Comments Source Exposure to 2021-10-17 2021-10-27 Not sure [facility] SARS-CoV-2 (event) 00:00:00 02:49:00 Medica l Branch Sex Assigned At [birth year] [facility] [place] 00:00:00 00:00:00 Medical Branch Smoking Status Start Date Stop Date Source Tobacco smoking consumption Univ [facility] Medical unknown Branch Medications Ordered Filled Start Stop Current Ordering Indication Dosage Frequency Signature Comments Components Source Medication Medication Date Date Medication? Clinician (SIG) Name Name butgaurangal- 2021- No 1{tbl} 1 tablet, Univers acetaminoph 10-27 Oral, ONCE i ty of en-caff 09:15: 08:21 NOW, 1 [place] (ESGIC) 00 :00 dose, On Medical 50-325-40 10/27/21 Bran ch mg tablet 1 at 0415, tablet Routine butalbital- Yes [id number] 1{tbl} Take 1 Univers acetaminoph 9-06 tablet by ity of en-caff 00:00: mouth [place] 50-325-40 00 every 6 Medical mg tablet (six) Branch hours as needed (Headache) . dexamethaso 2020- No 10mg 10 mg, IV Univers ne 04-28- Push, ity of (DECADRON 21:15: 20:26 ONCE, 1 [place] PHOSPH[place] 00 :00 dose, Mon Medi dax injection 04/28/20 at Branc h 10 mg 1515, STAT acetaminoph 2020- No 650mg 650 mg, U nivers en 04-28 Oral, ity of (TYLENOL) 21:15: 20:22 ONCE, 1 [place] tablet 650 00 :00 dose, Mon Medi dax mg 04/28/20 at Branch 1515, ROMIE metoclopram No 10mg 10 mg, Uni vers alexis HCl 04-28 Slow IV ity of (REGLAN) 21:15: 20:26 Push, [place] injection 00 :00 ONCE, 1 Medical 10 mg dose, Mon Branch 04/28/20 at 1515, ROMIE NaCl 0.9% 2020- No 1000mL at 999 Uni vers (NS) bolus 04-28-08 mL/hr, ity of infusion 20:15: 21:17 1,000 mL, Mike as 1,000 mL 00 :00 IV Medical Infusion, Branch ONCE, 1 dose, 04/28/20 at 1415, ROMIE butalbital- 2020- No [id number] 1{tbl} Take 1 Univers acetaminoph 04-28-14 tablet by it y of en-caff 00:00: 05:59 mouth [place] 50-325-40 00 :00 every 4 Medical mg tablet (four) Branch hours as needed for Pain (scale 7-10) for up to 5 days. Vital Signs Vital Name Observation Time Observation Value Comments Source Systolic blood 2021-10-27 07:50:00 141 mm[Hg] Univer sity of pressure [place] [facility] Diastolic blood 2021-10-27 07:50:00 97 mm[Hg] Unive rsity of pressure [place] [facility] Heart rate 2021-10-27 07:50:00 78 /min Universi ty of [facility] Body temperature 2021-10-27 07:50:[address] [facility] ersity of [facility] Branch Respiratory rate 2021-10-27 07:50:00 16 /min Univ ersity of [place] [facility] Body height 2021-10-27 07:50:00 180.3 cm Universi ty of [facility] Body weight 2021-10-27 07:50:00 98.884 kg Universi ty of [facility] BMI 2021-10-27 07:50:00 30.40 kg/m2 [facility] ty [facility] Oxygen saturation in 2021-10-27 07:50:00 96 /min University of Arterial blood by [place] [employer] dax Pulse oximetry Branch Systolic blood 2020-04-28 20:30:00 158 mm[Hg] Univer sity of [facility] Diastolic blood 2020-04-28 20:30:00 89 mm[Hg] Unive rsity of [facility] Heart rate 2020-04-28 20:30:00 72 /min Universi ty of [facility] Respiratory rate 2020-04-28 20:30:00 20 /min [facility] Oxygen saturation in 2020-04-28 20:30:00 98 /min University of Arterial blood by [place] [employer] dax Pulse oximetry Branch Body temperature 2020-04-28 19:24:[address] [facility] ersity of [facility] Body weight 2020-04-28 19:24:00 107.956 kg Universi ty [facility] Procedures Procedure Date / Time Performed Performing Clinician [facility] e NOTICE OF PRIVACY 2021-10-27 07:48:36 Doctor Unassigned, No [facility] Name Medical Branch CONSENT/REFUSAL FOR 2021-10-27 07:45:29 Doctor Unassigned, No [facility] DI[facility] AND Name Medical Branch TREATMENT CT HEAD WO CONTRAST 2020-04-28 20:44:20 ErnstMacho clayton Universi ty [facility] NOTICE OF PRIVACY 2020-04-28 19:18:10 Doctor Unassigned, No Univ [facility] Name [facility] [place] Encounters Start End Encounter Admission Attending Care Care Encounter Source Date/Time Date/Time Type Type Clinicians Facility Department ID 2021-10-27 2021-10-27 Emergency X [facility] ERT [id number] Univers 02:56:00 03:38:00 WAKILI ity [facility] 2021-10-27 2021-10-27 Emergency [facility] [id number] Univers 02:56:00 03:38:00 Pearl OTTO [id number] ity of [place] [id number] [facility] [id number] [place] [id number] [place] 2021-10-27 2021-10-27 Orders Doctor ELVIN [id number] Univers 00:00:00 00:00:00 Only Unassigned, RYLAN [id number] ity of [place] [facility] [id number] Mike [id number] [facility] 009 [place] 2020-04-28 2020-04-[address] [facility] [id number] Univers 13:25:00 16:09:00 Williamspatrick [place] [id number] i ty of [place] [id number] [facility] [id number] [address] 2020-04-28 2020-04-28 Emergency [facility] [id number] Univers 13:25:00 13:25:00 [facility] Test Test Test Results Result Source Description Time Comments Comments CT HEAD WO 2020-04- No acute intracranial Un iversity of CONTRAST 08 abnormality. Preliminary [facility] 21:06:06 Report Dictated by [place] Resident: Julius Vazquez, Nader Valdez MD., have reviewed this study and agree with the abovereport.CT HEAD WO CONTRAST HISTORY: worst headache of life, x 1 week, feel like a pop inside COMPARISON: None. TECHNIQUE: Nonenhanced CT scan of the head was done in the axial dimension.Regenerated formats in the coronal and sagittal dimensions were obtained. FINDINGS: The ventricles and cerebral sulci are normal in caliber and configuration.No midline, hydrocephalus or pathological extra-axial fluid collection ispresent. The basal cisterns are unremarkable. There is no acute intraparenchymal hemorrhage or significant mass effect.No parenchymal attenuation abnormality. The dior-white matterdifferentiation is preserved. The mastoid air cells and paranasal sinuses are clear. The calvarium andcentral skull base are unremarkable. [facility], Radiant Results Inft User - 04/28/2020 3:07 PM CSTCT HEAD WO CONTRASTHISTORY: worst headache of life, x 1 week, feel like a pop inside COMPARISON: None.TECHNIQUE: Nonenhanced CT scan of the head was done in the axial dimension.Regenerated formats in the coronal and sagittal dimensions were obtained.FINDINGS:The ventricles and cerebral sulci are normal in caliber and configuration.No midline, hydrocephalus or pathological extra-axial fluid collection ispresent. The basal cisterns are unremarkable.There is no acute intraparenchymal hemorrhage or significant mass effect.No parenchymal attenuation abnormality. The dior-white matterdifferentiation is preserved.The mastoid air cells and paranasal sinuses are clear. The calvarium andcentral skull base are unremarkable.IMPRESSIONNo acute intracranial abnormality.Preliminary Report Dictated by Resident: Julius Hernandez, Nader Valdez MD., have reviewed this study and agree with the abovereport.
[2022-01-25] MEDS ORDERED: DIPHENHYDRAMINE 50 MG/ML VIAL ONE (05:33)
[2022-01-25] MEDS ORDERED: METOCLOPRAMIDE 10 MG/2mL INJ ONE (05:33)
[2022-01-25] MEDS ORDERED: Magnesium Sulfate 2gm IVPB 2 G/50 ML BAG IV ONE (05:34)
[2022-01-25] MEDS ORDERED: ACETAMINOPHEN 500 MG TAB ONE (05:34)
--- NOTE | 2022-01-25 08:25 | EDPHYS ---
Physician Documentation [facility] Name: Regino Kaba Age: 26 yrs Sex: Male : 1995 Arrival Date: 01/25/2022 Time: 04:51 Bed 19 Private MD: ED Physician Chad Hernandez HPI: 01/25 05:46 This 26 yrs old Male presents to ER via Ambulatory with complaints of Headache.rt 05:46 The patient complains of pain to the top of head. The patient describes the headache as rt throbbing. Onset: The symptoms/episode began/occurred 2 day(s) ago. Associated signs and symptoms: The patient has no apparent associated signs or symptoms. Patient presents to the ED with a headache on the top of his head for the past 2 days. He is taking medications prescribed on [place] for headaches, however, he states that it is not improving his symptoms. He does not know what these medicines were. Patient states that he was told that he had a migraine, but that this headache is different. The mother reports that there is a history of aneurysms run in the family. Said it was not maximal at onset, no syncope. Pain is aching nature, nonradiating, moderate severity, no other aggravating or alleviating factors.. Historical: - Allergies: 05:10 No Known Allergies; aa9 - Home Meds: 05:10 None [Active]; aa9 - PMHx: 05:10 None; aa9 - PSHx: 05:10 None; aa9 - Immunization history:: Client reports having NOT received the Covid vaccine. - Social history:: Smoking status: Patient denies any tobacco usage or history of. - Family history:: Family history of cerebral aneurysms. ROS: 05:51 Constitutional: Negative for fever, chills, and weight loss, Eyes: Negative for injury, rt pain, redness, and discharge, Neck: Negative for injury, pain, and swelling, Cardiovascular: Negative for chest pain, palpitations, and edema, Respiratory: Negative for shortness of breath, cough, wheezing, and pleuritic chest pain, Abdomen/GI: Negative for abdominal pain, nausea, vomiting, diarrhea, and constipation, MS/Extremity: Negative for injury and deformity, Skin: Negative for injury, rash, and discoloration, Psych: Negative for depression, anxiety, suicide ideation, homicidal ideation, and hallucinations. 05:51 Neuro: Positive for headache, Negative for altered mental status. Exam: 05:51 Constitutional: This is a well developed, well nourished patient who is awake, alert, rt and in no acute distress. Head/Face: Normocephalic, atraumatic. Eyes: Pupils equal round and reactive to light, extra-ocular motions intact. Lids and lashes normal. Conjunctiva and sclera are non-icteric and not injected. Cornea within normal limits. Periorbital areas with no swelling, redness, or edema. ENT: Nares patent. No nasal discharge, no septal abnormalities noted. Tympanic membranes are normal and external auditory canals are clear. Oropharynx with no redness, swelling, or masses, exudates, or evidence of obstruction, uvula midline. Mucous membranes moist. Chest/axilla: Normal chest wall appearance and motion. Nontender with no deformity. No lesions are appreciated. Cardiovascular: Regular rate and rhythm with a normal S1 and S2. No gallops, murmurs, or rubs. Normal PMI, no JVD. No pulse deficits. Respiratory: Lungs have equal breath sounds bilaterally, clear to auscultation and percussion. No rales, rhonchi or wheezes noted. No increased work of breathing, no retractions or nasal flaring. Abdomen/GI: Soft, non-tender, with normal bowel sounds. No distension or tympany. No guarding or rebound. No evidence of tenderness throughout. Skin: Warm, dry with normal turgor. Normal color with no rashes, no lesions, and no evidence of cellulitis. MS/ Extremity: Pulses equal, no cyanosis. Neurovascular intact. Full, normal range of motion. Neuro: Awake and alert, GCS 15, oriented to person, place, time, and situation. Cranial nerves II-XII grossly intact. Motor strength 5/5 in all extremities. Sensory grossly intact. Cerebellar exam normal. Normal gait. Psych: Awake, alert, with orientation to person, place and time. Behavior, mood, and affect are within normal limits. 05:51 Neck: Full range of motion, no meningismus. Vital Signs: 05:09 BP 150 / 97; Pulse 52; Resp 20 S; Temp 98.2(O); Pulse Ox 96% on R/A; aa9 05:28 BP 137 / 96; Pulse 62; Resp 21 S; Pulse Ox 99% on R/A; aa9 07:25 BP 131 / 88; Pulse 61; Resp 19; Pulse Ox 99% on R/A; jd3 MDM: 05:17 Patient medically screened. rt 16:14 Data reviewed: vital signs, nurses notes, lab test result(s), radiologic studies. kdr Counseling: I had a detailed discussion with the patient and/or guardian regarding: the historical points, exam findings, and any diagnostic results supporting the discharge/admit diagnosis, lab results, radiology results, the need for outpatient follow up. 01/25 06:57 Order name: CREATININE WHOLE BLOOD; Complete Time: 07:00 EDMS 01/25 05:29 Order name: CT Head Angio rt 01/25 05:29 Order name: CT Head Brain wo Cont rt Administered Medications: 05:45 Drug: Tylenol 1000 mg Route: PO; aa9 07:00 Follow up: Response: No adverse reaction jd3 05:46 Drug: Reglan (metoCLOPramide) 10 mg Route: IVP; Site: right antecubital; aa9 07:00 Follow up: Response: No adverse reaction jd3 05:46 Drug: Benadryl (diphenhydrAMINE) 25 mg Route: IVP; Site: right antecubital; aa9 07:00 Follow up: Response: No adverse reaction jd3 05:46 Drug: Magnesium Sulfate 2 grams Route: IVPB; Infused Over: 2 hrs; Site: right aa9 antecubital; 07:45 Follow up: Response: No adverse reaction; IV Status: Completed infusion; IV Intake: jd3 100ml Disposition Summary: 01/25/22 08:25 Discharge Ordered Location: Home kdr Problem: new kdr Symptoms: have improved kdr Condition: Stable kdr Diagnosis - Headache kdr Followup: kdr - With: Private Physician - When: 2 - 3 days - Reason: If symptoms return, Further diagnostic work-up, Recheck today's complaints, Continuance of care, Re-evaluation by your physician Discharge Instructions: - Discharge Summary Sheet kdr - General Headache Without Cause kdr - Pain Without a Known Cause kdr Forms: - Medication Reconciliation Form kdr - Thank You Letter kdr Prescriptions: - ketorolac 10 mg Oral tablet - take 1 tablet by ORAL route every 4-6 hours As needed not to exceed 40 mg in kdr 24hrs; 12 tablet; Refills: 0, Product Selection Permitted - Reglan 10 mg Oral Tablet - take 1 tablet by ORAL route every 4-6 hours Take along with the Ketorolac for kdr your headache; 20 tablet; Refills: 0, Product Selection Permitted Signatures: Dispatcher ZackHoChad Guerra MD MD kdr Lizeth Dorsey RN RN aa9 Jorge Sotelo MD MD rt Davies, Jonathon RN jd3
--- NOTE | 2022-01-25 08:25 | ER ---
Nurse's Notes [facility] Name: Regino Kaba Age: 26 yrs Sex: Male : 1995 Arrival Date: 01/25/2022 Time: 04:51 Bed 19 Private MD: Diagnosis: Headache Presentation: 01/25 05:09 Chief complaint: Patient states: I have had a headache for the past 2 days, I was here aa9 before and they gave me pain pills, I don't think it really helped, I feel shaky now. Coronavirus screen: Vaccine status: Patient reports being unvaccinated. Ebola Screen: No symptoms or risks identified at this time. Initial Sepsis Screen: Does the patient meet any 2 criteria? No. Patient's initial sepsis screen is negative. Does the patient have a suspected source of infection? No. Patient's initial sepsis screen is negative. Risk Assessment: Do you want to hurt yourself or someone else? Patient reports no desire to harm self or others. Onset of symptoms was January 25, 2022. 05:09 Method Of Arrival: Ambulatory aa9 05:09 Acuity: DYLAN 4 aa9 Triage Assessment: 05:10 Headache History: The patient has had previous headaches and this one is similar to aa9 previous episodes. General: Appears uncomfortable, Behavior is cooperative, anxious. Pain: Complains of pain in left presybeterian and left temporal area Pain currently is 10 out of 10 on a pain scale. Quality of pain is described as crushing, Pain began 2-3 days ago. Is continuous, Also complains of photophobia. Neuro: Level of Consciousness is awake, alert, obeys commands, Oriented to person, place, time, situation, Reports photophobia. Cardiovascular: Patient's skin is warm and dry. Respiratory: Airway is patent Respiratory effort is even, unlabored. GI: Patient currently denies nausea, vomiting. : No signs and/or symptoms were reported regarding the genitourinary system. Derm: Skin is intact, is healthy with good turgor. Musculoskeletal: No signs and/or symptoms reported regarding the musculoskeletal system. Historical: - Allergies: 05:10 No Known Allergies; aa9 - Home Meds: 05:10 None [Active]; aa9 - PMHx: 05:10 None; aa9 - PSHx: 05:10 None; aa9 - Immunization history:: Client reports having NOT received the Covid vaccine. - Social history:: Smoking status: Patient denies any tobacco usage or history of. - Family history:: Family history of cerebral aneurysms. Screenin:12 Abuse screen: Denies threats or abuse. Denies injuries from another. Nutritional aa9 screening: No deficits noted. Tuberculosis screening: No symptoms or risk factors identified. Fall Risk None identified. Assessment: 05:46 General: Appears uncomfortable, slender, Behavior is cooperative, anxious. Pain: aa9 Complains of pain in headache. Neuro: Level of Consciousness is awake, alert, obeys commands, Oriented to person, place, time, situation. Respiratory: Airway is patent Respiratory effort is even, unlabored. 07:31 Reassessment: Patient appears in no apparent distress at this time. Patient and/or jd3 family updated on plan of care and expected duration. Pain level reassessed. Patient is alert, oriented x 3, equal unlabored respirations, skin warm/dry/pink. Patient states feeling better. General: Appears in no apparent distress. comfortable, Behavior is calm, cooperative, appropriate for age. Pain: Complains of pain in head Pain currently is 1 out of 10 on a pain scale. Quality of pain is described as aching. Neuro: Rojas Agitation-Sedation Scale (RASS): 0 - Alert and Calm Level of Consciousness is awake, alert, obeys commands, Oriented to person, place, time, situation. Cardiovascular: Capillary refill < 3 seconds Patient's skin is warm and dry. Respiratory: Airway is patent Respiratory effort is even, unlabored, Respiratory pattern is regular, symmetrical, Denies cough, shortness of breath. GI: No signs and/or symptoms were reported involving the gastrointestinal system. : No signs and/or symptoms were reported regarding the genitourinary system. EENT: No signs and/or symptoms were reported regarding the EENT system. Derm: Skin is intact, Skin is dry, Skin is normal, Skin temperature is warm. Musculoskeletal: Circulation, motion, and sensation intact. Range of motion: intact in all extremities. 08:37 Reassessment: Patient appears in no apparent distress at this time. Patient and/or jd3 family updated on plan of care and expected duration. Pain level reassessed. Patient is alert, oriented x 3, equal unlabored respirations, skin warm/dry/pink. reported understanding of discharge instructions. Patient states feeling better. Vital Signs: 05:09 BP 150 / 97; Pulse 52; Resp 20 S; Temp 98.2(O); Pulse Ox 96% on R/A; aa9 05:28 BP 137 / 96; Pulse 62; Resp 21 S; Pulse Ox 99% on R/A; aa9 07:25 BP 131 / 88; Pulse 61; Resp 19; Pulse Ox 99% on R/A; jd3 ED Course: 04:51 Patient arrived in ED. ja2 05:02 Lizeth Dorsey, RN is Primary Nurse. aa9 05:10 Triage completed. aa9 05:12 Arm band placed on. aa9 05:12 Patient has correct armband on for positive identification. Call light in reach. Adult aa9 w/ patient. Family accompanied patient. 05:16 Jorge Sotelo MD is Attending Physician. rt 05:46 Inserted saline lock: 20 gauge in right antecubital area, using aseptic technique. aa9 06:28 CT Head Angio In Process Unspecified. EDMS 06:29 CT Head Brain wo Cont In Process Unspecified. EDMS 07:20 Attending Physician role handed off by Jorge Sotelo MD kdr 07:20 Chad Hernandez MD is Attending Physician. kdr 08:37 No provider procedures requiring assistance completed. IV discontinued, intact, jd3 bleeding controlled, No redness/swelling at site. Pressure dressing applied. Administered Medications: 05:45 Drug: Tylenol 1000 mg Route: PO; aa9 07:00 Follow up: Response: No adverse reaction jd3 05:46 Drug: Reglan (metoCLOPramide) 10 mg Route: IVP; Site: right antecubital; aa9 07:00 Follow up: Response: No adverse reaction jd3 05:46 Drug: Benadryl (diphenhydrAMINE) 25 mg Route: IVP; Site: right antecubital; aa9 07:00 Follow up: Response: No adverse reaction jd3 05:46 Drug: Magnesium Sulfate 2 grams Route: IVPB; Infused Over: 2 hrs; Site: right aa9 antecubital; 07:45 Follow up: Response: No adverse reaction; IV Status: Completed infusion; IV Intake: jd3 100ml Medication: 05:12 VIS not applicable for this client. aa9 Intake: 07:45 IV: 100ml; Total: 100ml. jd3 Outcome: 08:25 Discharge ordered by . rosa 08:38 Discharged to home ambulatory, with family. jd3 08:38 Condition: stable 08:38 Discharge instructions given to patient, family, Instructed on discharge instructions, follow up and referral plans. medication usage, Demonstrated understanding of instructions, follow-up care, medications, Prescriptions given X 2. 08:39 Patient left the ED. jd3 Signatures: Dispatcher [employer] EDMS Chad Hernandez MD MD kdr Davies, Jonathon, RN RN jd3 Katya Miranda Aylin, RN RN aa9 Jorge Sotelo MD MD rt
[2022-01-25 08:49] VITALS: TEMP 98.2
[2022-01-25 08:54] VITALS: O2SAT 99
[2022-01-25 09:00] VITALS: BP 131/88
--- NOTE | 2022-01-25 12:50 | RAD REPORT ---
EXAM DESCRIPTION: CT - Head angio - 01/25/2022 7:48 am CLINICAL HISTORY: 26 years Male headache TECHNIQUE: Axial noncontrast CT head with coronal and sagittal reformats. Following intravenous inje ction of contrast, high-resolution multiple axial helical CT images were obtained through the head wi th multiplanar reformation, 3D and MIP reconstructions. All CT scans at this facility use dose modula tion, iterative reconstruction, and/or weight based dosing when appropriate to reduce radiation dose to as low as reasonably achievable. COMPARISON: CT head 01/06/2018 FINDINGS: CT HEAD: Brain: Normal in morphology and attenuation. No intracranial hemorrhage, midline shift, mass or mass effect. No obvious large acute territorial infarction. Ventricles: No hydrocephalus. Orbits: Unremarkable. Sinuses: Visualized portions are clear. Mastoid: Clear. Osseous: Unremarkable. Soft tissues: Unremarkable. CTA HEAD: LEFT: Internal carotid artery: Unremarkable. Anterior cerebral arteries: Unremarkable. Middle cerebral arteries: Unremarkable. Posterior cerebral arteries: Unremarkable. RIGHT: Internal carotid artery: Unremarkable. Anterior cerebral arteries: Unremarkable. Middle cerebral arteries: Unremarkable. Posterior cerebral arteries: Unremarkable. Basilar artery: Unremarkable. Vertebral artery: Unremarkable. Other: No aneurysm. IMPRESSION: 1. No acute intracranial abnormality. 2. Unremarkable CTA of the head. Electronically signed by: Edilberto Isaac MD 01/25/2022 7:09 AM SMALL ARMS REPAIRER Due to temporary technical issues with the PACS/Fluency reporting system, reports are being signed by the in house radiologists without review as a courtesy to insure prompt reporting. The interpreting radiologist is fully responsible for the content of the report.
--- NOTE | 2022-01-25 13:00 | RAD REPORT ---
EXAM DESCRIPTION: CT - Head Brain Wo Cont - 01/25/2022 9:50 am CLINICAL HISTORY: 26 years Male headache TECHNIQUE: Axial noncontrast CT head with coronal and sagittal reformats. Following intravenous inje ction of contrast, high-resolution multiple axial helical CT images were obtained through the head wi th multiplanar reformation, 3D and MIP reconstructions. All CT scans at this facility use dose modula tion, iterative reconstruction, and/or weight based dosing when appropriate to reduce radiation dose to as low as reasonably achievable. COMPARISON: CT head 01/06/2018 FINDINGS: CT HEAD: Brain: Normal in morphology and attenuation. No intracranial hemorrhage, midline shift, mass or mass effect. No obvious large acute territorial infarction. Ventricles: No hydrocephalus. Orbits: Unremarkable. Sinuses: Visualized portions are clear. Mastoid: Clear. Osseous: Unremarkable. Soft tissues: Unremarkable. CTA HEAD: LEFT: Internal carotid artery: Unremarkable. Anterior cerebral arteries: Unremarkable. Middle cerebral arteries: Unremarkable. Posterior cerebral arteries: Unremarkable. RIGHT: Internal carotid artery: Unremarkable. Anterior cerebral arteries: Unremarkable. Middle cerebral arteries: Unremarkable. Posterior cerebral arteries: Unremarkable. Basilar artery: Unremarkable. Vertebral artery: Unremarkable. Other: No aneurysm. IMPRESSION: 1. No acute intracranial abnormality. 2. Unremarkable CTA of the head. Electronically signed by: Edilberto Isaac MD 01/25/2022 7:09 AM HR MANAGER Due to temporary technical issues with the PACS/Fluency reporting system, reports are being signed by the in house radiologists without review as a courtesy to insure prompt reporting. The interpreting radiologist is fully responsible for the content of the report.
== END 2022-01-25 08:39 | disposition home or self-care (01) ==
LOC: ER 04:49
DX: R51.9 Headache, unspecified (principal)
CPT/HCPCS: 70450; 70496; 82565; 96365; 96366; 96375; 99284; J1200; J2765; J3475; Q9967